=== PATIENT | male | born 1940 | race Caucasian/White ===

== ENCOUNTER 2021-05-30 08:23 | Day surgery (SDC) | payer OTHER, SELFPAY ==
[~2021-05-30] VITALS: Ht 177.8 cm; Wt 93.0 kg
[~2021-05-30 08:23] MED LIST: LEVOFLOXACIN IN DEXTROSE 5 % 100 ML IV ONE
[2021-05-30] MEDS ORDERED: LEVOFLOXACIN IN DEXTROSE 5 % 500 MG/100 ML PIGGYBACK IV ONE (12:55)
[2021-05-30] MEDS ORDERED: NS IRRIG SOLN 1000 ML IR ONE (12:55)
[2021-05-30] MEDS ORDERED: ONDANSETRON HCL 4 MG/2 ML VIAL IVP ONE (12:55)
[2021-05-30] MEDS ORDERED: SUGAMMADEX SODIUM 200 MG/2 ML VIAL IV ONE (12:55)
[2021-05-30] MEDS ORDERED: PROPOFOL 200MG/ 20ML VIAL (DIPRIVAN) IV ONE (12:55)
[2021-05-30] MEDS ORDERED: fentaNYL CITRATE/PF 100 MCG/2 ML AMP IVP ONE (12:55)
[2021-05-30] MEDS ORDERED: ROCURONIUM BROMIDE 10 MG/ML (ZEMURON) IV ONE (12:55)
[2021-05-30] MEDS ORDERED: LR 1,000 ML IV.SOLN IV ONE (12:55)
[2021-05-30] MEDS ORDERED: MIDAZOLAM HCL 5 MG/5 ML VIAL IVP ONE (12:55)
[2021-05-30] MEDS ORDERED: DESFLURANE 15 MIN GAS INH ONE (12:55)
[2021-05-30] MEDS ORDERED: BUPIVACAINE /PF 0.25% 30 ML VIAL INJ ONE (12:55)
[2021-05-30] MEDS ORDERED: DEXAMETHASONE SOD PHOSPHATE 4 MG/ML VIAL IVP ONE (12:55)
[2021-05-30] MEDS ORDERED: hydrALAZINE HCL 20 MG/ML VIAL IVP PRN (13:45)
[2021-05-30] MEDS ORDERED: ONDANSETRON HCL 4 MG/2 ML VIAL IVP PRN (13:45)
[2021-05-30] MEDS ORDERED: LR 1,000 ML IV SCH (13:45)
[2021-05-30] MEDS ORDERED: MIDAZOLAM HCL 2 MG/2 ML VIAL (VERSED) IVP PRN (13:45)
[2021-05-30] MEDS ORDERED: HYDROmorphone 1 MG/ML INJ. CARTRIDGE IVP PRN ×2 (13:45)
[2021-05-30] MEDS ORDERED: MEPERIDINE HCL/PF 25 MG/ML DISP.SYRIN IVP PRN (13:45)
[2021-05-30 15:37] VITALS: BP_SYST 119
[2021-05-30] MEDS ORDERED: D5/0.45 NS 1,000 ML IV SCH (16:00)
[2021-05-30] MEDS ORDERED: HYDROcodone/ACETAMIN 5-325 MG TAB (NORCO/ VICODIN) PO PRN (16:00)
== END 2021-05-30 16:30 | disposition home or self-care (01) ==
LOC: SDS 08:23 → SMU 08:27 → SDS 16:30
PROVIDERS: ATTEND Colon & Rectal Surgery
DX: K42.0 Umbilical hernia with obstruction, without gangrene (principal); I10 Essential (primary) hypertension; K21.9 Gastro-esophageal reflux disease without esophagitis; I25.10 Atherosclerotic heart disease of native coronary artery without angina pectoris; Z95.1 Presence of aortocoronary bypass graft; F41.9 Anxiety disorder, unspecified; G20 Parkinson's disease; F43.10 Post-traumatic stress disorder, unspecified; Z87.891 Personal history of nicotine dependence; Z79.899 Other long term (current) drug therapy; Z20.822 Contact with and (suspected) exposure to COVID-19
CPT/HCPCS: 49587; 88302; C1781; J1100; J1956; J2250; J2405; J2704; J3010; J3490 ×2; J7120; U0003